=== PATIENT | male | born 1960 | race Caucasian/White ===

== ENCOUNTER → 2018-04-27 09:45 | Outpatient (CLI) | payer BC ==
[2012-03-25 10:05] VITALS: BMI 31.4
== END | disposition home or self-care (01) ==
LOC: D.RT 09:45
DX: R06.00 Dyspnea, unspecified (principal)

== ENCOUNTER → 2018-09-22 09:58 | Outpatient (CLI) | payer BC ==
[2012-03-25 10:05] VITALS: BMI 31.4
== END | disposition home or self-care (01) ==
LOC: D.RAD 09:58
DX: S13.4XXA Sprain of ligaments of cervical spine, initial encounter (principal); V89.2XXA Person injured in unspecified motor-vehicle accident, traffic, initial encounter

== ENCOUNTER → 2019-04-15 07:39 | Outpatient (CLI) | payer BC ==
[2012-03-25 10:05] VITALS: BMI 31.4
== END | disposition home or self-care (01) ==
LOC: D.NM 07:39
PROVIDERS: ATTEND Nurse Practitioner Family
DX: R10.11 Right upper quadrant pain (principal)